=== PATIENT | male | born 1955 | race African-American/Black ===

== ENCOUNTER 2017-10-20 16:33 | Emergency (ER) | payer OTHER ==
[~2017-10-20] VITALS: Ht 175.3 cm; Wt 124.7 kg
[2017-10-20 16:35] VITALS: Ht 175.3 cm; Wt 124.7 kg
== END 2017-10-20 16:45 | disposition expired ==
LOC: ED 16:33
DX: I46.9 Cardiac arrest, cause unspecified (principal)